=== PATIENT | female | born 1965 | race African-American/Black ===

== ENCOUNTER 2016-09-18 13:51 | Emergency (ER) | payer MEDICARE, OTHER ==
[~2016-09-18] VITALS: Ht 170.2 cm; Wt 52.2 kg
[~2016-09-18 13:51] MED LIST: ACET1TAB32 PO; ALBU8.5H6 IH; CYCL10TA2 PO; DICL75TA PO; LISI1TAB3 PO; PRAV10TA2 PO
[2016-09-18 14:25] VITALS: BP 147/82
--- NOTE | 2016-09-18 15:37 | RAD ---
Left great toe, 3 views, 09/18/2016: History: Great toe pain No fracture or destructive bony lesion is seen. There is mild degenerative change at the first MTP joint. The soft tissues are unremarkable. IMPRESSION: 1. Mild degenerative change. 2. No acute bony abnormality is detected.
[2016-09-18] MEDS ORDERED: ACET-704 PO (15:51)
[2016-09-18] MEDS ORDERED: CEPH-264 PO (15:51)
--- NOTE | 2016-09-18 15:51 | PHYS DOC ---
Past Medical History Past Medical History: Asthma, High Cholesterol, Hypertension Past Surgical History: Tubal ligation, Other Additional Past Surgical Histo: MASS REMOVED FROM HER VAGINA; cyst on face Alcohol Use: Occasionally Drug Use: None Adult General Chief Complaint Chief Complaint: LOWER EXT PAIN HPI HPI Patient is a 51 year old female who presents with left 2nd toe pain for 2 months. She denies any known injury. She saw her PCP for the pain previously. She was told that she does not have gout and was prescribed a medication that she was not able to afford. Her PCP is Dr. Parr. Review of Systems Review of Systems Constitutional: Denies fever or chills. [] Musculoskeletal: Reports left second toe pain. Integument: Denies rash or skin lesions. [] Neurologic: Denies focal weakness or sensory changes. [] Allergies Allergies Allergies Coded Allergies Type Severity Reaction Last Updated Verified No Known Drug Allergies 03/13/14 No Physical Exam Physical Exam Constitutional: Well developed, well nourished, no acute distress, non-toxic appearance. [] HENT: Normocephalic, atraumatic, oropharynx moist. [] Eyes: PERRLA, EOMI, conjunctiva normal, no discharge. [] Skin: Warm, dry, no rash. There is mild erythema of the plantar surface of the distal phalanx of the left second toe with peeling of the skin. Extremities: Left second toe tenderness particularly over the PIP joint, ROM intact, no edema. 2+ DP pulse. Less than 2 second capillary refill in the toes distally. Light touch sensation intact in the toes. Neurologic: Alert and oriented X 3, normal motor function, normal sensory function, no focal deficits noted. [] Psychologic: Affect normal, judgement normal, mood normal. [] Current Patient Data Vital Signs Vital Signs Date Time Temp Pulse Resp B/P Pulse Ox O2 Delivery O2 Flow Rate FiO2 09/18/16 14:25 98 82 16 147/82 98 Room Air 98.0 EKG EKG [] Radiology/Procedures Radiology/Procedures REASON: 2nd toe pain x2 months PROCEDURE: TOES LEFT Left great toe, 3 views, 09/18/2016: History: Great toe pain No fracture or destructive bony lesion is seen. There is mild degenerative change at the first MTP joint. The soft tissues are unremarkable. IMPRESSION: 1. Mild degenerative change. 2. No acute bony abnormality is detected. Course & Med Decision Making Course & Med Decision Making Pertinent Labs and Imaging studies reviewed. (See chart for details) [] Dragon Disclaimer Dragon Disclaimer This electronic medical record was generated, in whole or in part, using a voice recognition dictation system. Departure Departure Impression: Primary Impression: Toe pain, left Disposition: HOME, SELF-CARE Condition: STABLE Referrals: BRIA PARR MD (PCP) MALLORY DUKE DPM Patient Instructions: Foot Contusion, [id number] Additional Instructions: Your x-ray does not show any broken bones or dislocation. Please take the prescribed pain medication as instructed. Do not drive or operate heavy machinery while taking pain medication. Please follow-up with the digital content marketing manager listed below if your toe pain continues. Return to emergency department if you have any new or concerning symptoms. Scripts Cephalexin (Keflex)500 Mg Capsule1 Cap PO BID #14 CAP Prov:RASHARD LYMAN 09/18/16 Acetaminophen With Codeine (Tylenol With Codeine #3 Tablet)1 Each Tablet1 Tab PO PRN Q6HRS PRN PAIN #20 TAB Prov:RASHARD LYMAN 09/18/16 RASHARD LYMAN Sep 18, 2016 15:51
== END 2016-09-18 15:57 | disposition home or self-care (01) ==
LOC: ER 13:51
DX: M79.675 Pain in left toe(s) (principal); E78.00 Pure hypercholesterolemia, unspecified; I10 Essential (primary) hypertension; J45.909 Unspecified asthma, uncomplicated
CPT/HCPCS: 73660; 99284

== ENCOUNTER 2016-11-09 18:08 | Emergency (ER) | payer MEDICARE ==
[~2016-11-09] VITALS: Ht 172.7 cm; Wt 50.8 kg
[~2016-11-09 18:08] MED LIST changes: +ACET-704 PO; +CEPH-264 PO
[2016-11-09] MEDS ORDERED: ASPIRIN CHEWABLE 81 MG TABLET. PO ONE (18:15)
--- NOTE | 2016-11-09 18:34 | EKG ---
[facility] [address] [place] [address] Test Date: 2016-11-09 Test Time: 18:16:19 Pat Name: SALLY MIRELES Department: Room: Gender: F Mica Inspector: : 1965 Requested By: OCTAVIO GRIMM Order Number: [id number] Reading MD: Nettie Burgess Measurements Intervals [place] Rate: 95 P: 68 [place]: 162 QRS: 67 QRSD: 86 T: 87 QT: 372 QTc: 471 Interpretive Statements SINUS RHYTHM QRS(T) CONTOUR ABNORMALITY CONSIDER ANTEROSEPTAL MYOCARDIAL DAMAGE T ABNORMALITY IN ANTERIOR LEADS ABNORMAL ECG Electronically Signed On 11-13-2016 13:37:04 CDT by Nettie Burgess
[2016-11-09 18:47] LABS: BASO % 0 % (0-3); EOS % 0 % (0-3); HEMATOCRIT 37.3 % (36.0-47.0); HEMOGLOBIN 11.8 g/dL (12.0-15.5); LYMPH # 0.8 x10^3/uL (1.0-4.8); LYMPH % 6 % (24-48); MEAN CORPUSCULAR HEMOGLOBIN 25 pg (25-35); MEAN CORPUSCULAR HGB CONC 32 g/dL (31-37); MEAN CORPUSCULAR VOLUME 80 fL (79-100); MONO % 6 % (0-9); NEUT % 87 % (31-73); PLATELET COUNT 243 x10^3/uL (140-400); RED BLOOD COUNT 4.65 x10^6/uL (3.50-5.40); RED CELL DISTRIBUTION WIDTH 15.8 % (11.5-14.5); WHITE BLOOD COUNT 12.6 x10^3/uL (4.0-11.0)
[2016-11-09 19:08] LABS: CALCIUM 8.6 mg/dL (8.5-10.1); CREATININE 0.8 mg/dL (0.6-1.0); GFR 90.8
[2016-11-09 19:13] LABS: ALBUMIN 3.4 g/dL (3.4-5.0); DIRECT BILIRUBIN 0.1 mg/dL (0.0-0.2); TOTAL BILIRUBIN 0.5 mg/dL (0.2-1.0); TOTAL PROTEIN 7.2 g/dL (6.4-8.2)
[2016-11-09 19:17] LABS: PLT ESTIMATE ADEQUATE (ADEQUATE)
[2016-11-09] MEDS ORDERED: ASPI81TA2 PO (20:00)
--- NOTE | 2016-11-09 20:01 | PHYS DOC ---
Past Medical History Past Medical History: Asthma, GERD, High Cholesterol, Hypertension Past Surgical History: Tubal ligation, Other Additional Past Surgical Histo: MASS REMOVED FROM HER VAGINA; cyst on face Alcohol Use: Occasionally Drug Use: None Adult General Chief Complaint Chief Complaint: CHEST PAIN HPI HPI 51-year-old female with a history of hyperlipidemia currently reporting to be a statin hypertension and history of smoking who presents emergency department with chest pain this started at 7 AM. She describes as a stabbing sharp pain that is nonradiating and not associated with nausea vomiting or diaphoresis. The pain is intermittent. She is never seen a drupal web developer. She denies unilateral leg swelling hemoptysis personal or family history of blood clotting disorders. No alleviating or exacerbating factors present. Review of systems is negative for nausea vomiting abdominal pain fevers chills. She denies cough. All other review of systems is negative unless otherwise noted in history of present illness. Review of Systems Review of Systems SEE ABOVE. Current Medications Current Medications Current Medications Medications (Trade) Dose Ordered Sig/Lance Start Time Stop Time Status Last Admin Dose Admin Aspirin (Children'S Aspirin) 324 mg 1X ONCE 11/09/16 18:15 11/09/16 18:19 DC 11/09/16 18:40 324 MG Allergies Allergies Allergies Coded Allergies Type Severity Reaction Last Updated Verified No Known Drug Allergies 03/13/14 No Physical Exam Physical Exam Constitutional: Well developed, well nourished, no acute distress, non-toxic appearance. HENT: Normocephalic, atraumatic, bilateral external ears normal, oropharynx moist, no oral exudates, nose normal. Eyes: PERRLA, EOMI, conjunctiva normal, no discharge. [] Neck: Normal range of motion, no tenderness, supple, no stridor. [] Cardiovascular:Heart rate regular rhythm, no murmur Lungs & Thorax: Bilateral breath sounds clear to auscultation [] Abdomen: Bowel sounds normal, soft, no tenderness, no masses, no pulsatile masses. Skin: Warm, dry, no erythema, no rash. [] Back: No tenderness, no CVA tenderness. Extremities: No tenderness, no cyanosis, no clubbing, ROM intact, no edema. Neurologic: Alert and oriented X 3, normal motor function, normal sensory function, no focal deficits noted. [] Psychologic: Affect normal, judgement normal, mood normal. [] Current Patient Data Vital Signs Vital Signs Date Time Temp Pulse Resp B/P Pulse Ox O2 Delivery O2 Flow Rate FiO2 11/09/16 18:15 96 16 131/73 94 Room Air Lab Values Laboratory Tests Test 11/09/16 18:37 White Blood Count 12.6x10^3/uL (4.0-11.0) H Red Blood Count 4.65x10^6/uL (3.50-5.40) Hemoglobin 11.8g/dL (12.0-15.5) L Hematocrit 37.3% (36.0-47.0) Mean Corpuscular Volume 80fL (79-100) Mean Corpuscular Hemoglobin 25pg (25-35) Mean Corpuscular Hemoglobin Concent 32g/dL (31-37) Red Cell Distribution Width 15.8% (11.5-14.5) H Platelet Count 243x10^3/uL (140-400) Neutrophils (%) (Auto) 87% (31-73) H Lymphocytes (%) (Auto) 6% (24-48) L Monocytes (%) (Auto) 6% (0-9) Eosinophils (%) (Auto) 0% (0-3) Basophils (%) (Auto) 0% (0-3) Neutrophils # (Auto) 11.0x10^3uL (1.8-7.7) H Lymphocytes # (Auto) 0.8x10^3/uL (1.0-4.8) L Monocytes # (Auto) 0.7x10^3/uL (0.0-1.1) Eosinophils # (Auto) 0.1x10^3/uL (0.0-0.7) Basophils # (Auto) 0.0x10^3/uL (0.0-0.2) Segmented Neutrophils % 86% (35-66) H Band Neutrophils % 2% (0-9) Lymphocytes % 8% (24-48) L Monocytes % 4% (0-10) Platelet Estimate Adequate (ADEQUATE) Sodium Level 136mmol/L (136-145) Potassium Level 4.0mmol/L (3.5-5.1) Chloride Level 99mmol/L (98-107) Carbon Dioxide Level 27mmol/L (21-32) Anion Gap 10 (6-14) Blood Urea Nitrogen 10mg/dL (7-20) Creatinine 0.8mg/dL (0.6-1.0) Estimated GFR (Cockcroft-Gault) 90.8 Glucose Level 179mg/dL (70-99) H Calcium Level 8.6mg/dL (8.5-10.1) Total Bilirubin 0.5mg/dL (0.2-1.0) Direct Bilirubin 0.1mg/dL (0.0-0.2) Aspartate Amino Transferase (AST) 20U/L (15-37) Alanine Aminotransferase (ALT) 31U/L (14-59) Alkaline Phosphatase 79U/L (46-116) Troponin I Quantitative < 0.017ng/mL (0.000-0.055) LM-Fro-J-Type Natriuretic Peptide 51pg/mL (0-124) Total Protein 7.2g/dL (6.4-8.2) Albumin 3.4g/dL (3.4-5.0) Lipase 80U/L (73-393) Laboratory Tests 11/09/16 18:37 Laboratory Tests 11/09/16 18:37 EKG EKG [] EKG shows sinus rhythm with a regular rate. ST segments congruent. Probable LVH present. Not consistent with ischemia. Radiology/Procedures Radiology/Procedures []Chest x-ray reviewed by myself shows no obvious infiltrate or pneumothorax present. No obvious acute cardiopulmonary process present. Course & Med Decision Making Course & Med Decision Making Pertinent Labs and Imaging studies reviewed. (See chart for details) [] 51-year-old female presenting to the emergency department today with chest pain started at 7 AM. Vital signs unremarkable. Pertinent physical exam findings show normal physical exam. EKG unremarkable. Chest x-ray unremarkable. Troponin negative. Pain and been present for approximately 12 hours. 1 troponin sufficient at this time. Patient's pain is much improved from before she came after the aspirin. She was subsequent discharged home to follow up with cardiology over the next day or 2. Heart score 3. Dragon Disclaimer Dragon Disclaimer This electronic medical record was generated, in whole or in part, using a voice recognition dictation system. Departure Departure Impression: Primary Impression: Chest pain Disposition: HOME, SELF-CARE Condition: STABLE Referrals: BRIA PARR MD (PCP) CARRIE HENDERSON MD in 1 to 2 days. heart doctor. Patient Instructions: Chest Pain (Nonspecific) Additional Instructions: Thank you for allowing us to participate in your care today. Followup with your primary care physician in 3 days if your symptoms do not improve. If you do not have a primary care provider you can ask for a list of our primary care providers. Return to the emergency department you have any new or concerning findings. This should be evaluated by the primary care physician and any necessary consulting services for continued management within a few days after discharge. Return to emergency room if you have any new or concerning symptoms including but not limited to fever, chills, nausea, vomiting, intractable pain, any new rashes, chest pain, shortness of air, uncontrolled bleeding, difficulty breathing, and/or vision loss. You may have been prescribed medication that can change in your level of thinking and ability to operate machinery. These medications include hydrocodone and Ativan. Also, Benadryl has been known to do this as well. Be sure to check with your pharmacist and ask if the medications you've prescribed can affect your level of consciousness. I recommend not operating heavy machinery or driving while on medication such as these. Scripts Aspirin 81 Mg Tab.chew1 Tab PO DAILY #14 TAB Ref 3 Prov:OCTAVIO GRIMM MD 11/09/16 Problem Qualifiers Primary Impression: Chest pain Chest pain type: unspecified Qualified Code: R07.9 - Chest pain, unspecified OCTAVIO GRIMM MD Nov 09, 2016 20:01
[2016-11-09 20:46] VITALS: BP 115/70
[2016-11-09] MEDS ORDERED: MORP15TA PO ×2 (20:58→21:03)
--- NOTE | 2016-11-10 08:45 | RAD ---
Portable chest, 11/09/2016: History: Chest pain Comparison is made to a study from 08/21/2013. The heart size and pulmonary vascularity are normal. No pulmonary infiltrates are seen. There is no evidence of pleural fluid. IMPRESSION: No acute cardiopulmonary abnormality is detected.
== END 2016-11-09 21:14 | disposition home or self-care (01) ==
LOC: ER 18:08
DX: R07.89 Other chest pain (principal); R11.2 Nausea with vomiting, unspecified; E78.00 Pure hypercholesterolemia, unspecified; J45.909 Unspecified asthma, uncomplicated; I10 Essential (primary) hypertension; K21.9 Gastro-esophageal reflux disease without esophagitis; Z98.51 Tubal ligation status; Z79.82 Long term (current) use of aspirin; Z87.891 Personal history of nicotine dependence
CPT/HCPCS: 36415; 71010; 80048; 80076; 83690; 83880; 84484; 85007; 85027; 93005; 99285-25

== ENCOUNTER 2016-12-16 11:41 | Emergency (ER) | payer MEDICARE ==
[~2016-12-16] VITALS: Ht 172.7 cm; Wt 50.8 kg
[~2016-12-16 11:41] MED LIST changes: +ASPI81TA2 PO; +MORP15TA PO
--- NOTE | 2016-12-16 11:55 | PHYS DOC ---
Past Medical History Past Medical History: Asthma, GERD, High Cholesterol, Hypertension Past Surgical History: Tubal ligation, Other Additional Past Surgical Histo: MASS REMOVED FROM HER VAGINA; cyst on face Alcohol Use: Occasionally Drug Use: None Adult General Chief Complaint Chief Complaint: COUGH HPI HPI Patient is a 51 year old female presents emergency department stating that she has history of asthma. She states that she has ran out of her medications. She' s had a cough with productive sputum that's been clearing color. Last 8 days. She denies any fever, chills or nausea vomiting. Denies any recent use of steroids. Review of Systems Review of Systems Constitutional: Denies fever or chills [] Eyes: Denies change in visual acuity, redness, or eye pain [] HENT: Denies nasal congestion or sore throat [] Respiratory: cough and shortness of breath [] Cardiovascular: No additional information not addressed in HPI [] GI: Denies abdominal pain, nausea, vomiting, bloody stools or diarrhea [] : Denies dysuria or hematuria [] Musculoskeletal: Denies back pain or joint pain [] Integument: Denies rash or skin lesions [] Neurologic: Denies headache, focal weakness or sensory changes [] Endocrine: Denies polyuria or polydipsia [] Current Medications Current Medications Current Medications Medications (Trade) Dose Ordered Sig/[facility] Start Time Stop Time Status Last Admin Dose Admin Albuterol/ Ipratropium (Duoneb) 3 ml 1X ONCE 12/16/16 12:15 12/16/16 12:16 DC 12/16/16 12:04 3 ML Prednisone (Prednisone) 40 mg 1X ONCE 12/16/16 12:15 12/16/16 12:16 DC 12/16/16 12:18 40 MG Allergies Allergies Allergies Coded Allergies Type Severity Reaction Last Updated Verified No Known Drug Allergies 03/13/14 No Physical Exam Physical Exam Constitutional: Well developed, well nourished, no acute distress, non-toxic appearance. [] HENT: Normocephalic, atraumatic, bilateral external ears normal, oropharynx moist, no oral exudates, nose normal. [] Eyes: PERRLA, EOMI, conjunctiva normal, no discharge. [] Neck: Normal range of motion, no tenderness, supple, no stridor. [] Cardiovascular:Heart rate regular rhythm, no murmur [] Lungs & Thorax: Bilateral breath sounds with wheezes noted throughout bilaterally Skin: Warm, dry, no erythema, no rash. [] Back: No tenderness Extremities: No tenderness, no cyanosis, no clubbing, ROM intact, no edema. [] Neurologic: Alert and oriented X 3, normal motor function, normal sensory function, no focal deficits noted. [] Psychologic: Affect normal, judgement normal, mood normal. [] Current Patient Data Vital Signs Vital Signs Date Time Temp Pulse Resp B/P (MAP) Pulse Ox O2 Delivery O2 Flow Rate FiO2 12/16/16 12:04 100 Room Air 12/16/16 11:42 98.4 85 22 98.4 EKG EKG [] Radiology/Procedures Radiology/Procedures [facility] [address] [place] [address] IMAGING REPORT Signed PATIENT: SALLY MIRELES ACCOUNT: [id number] : 1965 LOCATION: ER AGE: 51 SEX: F EXAM STATUS: REG ER ORD. PHYSICIAN: TODD KING APRN REASON: porductive clear cough x 8 days PROCEDURE: CHEST PA & LATERAL Indication cough and congestion. Shortness of breath. PA and lateral views of the chest were obtained. Comparison is made to an examination 11/09/2016. There is mild hyperexpansion. The lungs are clear. There is no pleural fluid or pneumothorax. There has not been a significant change compared to the previous exam. IMPRESSION: No acute or focal process. No significant change DICTATED and SIGNED BY: ATUL BALDERRAMA MD DATE: 12/16/16 1223 CC: TODD KING APRN; BRIA PARR MD ~ [] Course & Med Decision Making Course & Med Decision Making Pertinent Labs and Imaging studies reviewed. (See chart for details) Was provided with a DuoNeb treatment here in the emergency department. Breath sounds are clear at this time. Chest x-ray was negative for any pneumonias or abnormalities. Patient will be discharged home with a pro-air inhaler. She is instructed to contact her primary care physician for a nebulizer machine and further medications for her nebulizer treatments at home. Patient will also be placed on steroids. Signs and symptoms to return back to emergency department has been provided. Patient agrees with discharge instructions treatment regimens and follow-up recommendations. [] Dragon Disclaimer Dragon Disclaimer This electronic medical record was generated, in whole or in part, using a voice recognition dictation system. Departure Departure Impression: Primary Impression: Asthma exacerbation Disposition: HOME, SELF-CARE Condition: STABLE Referrals: BRIA PARR MD (PCP) Patient Instructions: Asthma, Adult, [id number] Additional Instructions: Activity as tolerated. Medications as prescribed. Contact your primary care physician for a nebulizer machine in education. Return back to emergency prior signs symptoms of become worse. Follow-up to primary care physician next 3-5 days. Scripts Albuterol Sulfate (PROAIR HFA INHALER) 8.5 Gm Hfa.aer.ad 1 PUFF INH PRN Q6HRS Y for SHORTNESS OF BREATH, #1 INHALER 0 Refills Prov: TODD KING APRN 12/16/16 Prednisone (PREDNISONE) 20 Mg Tablet 40 MG PO DAILY, #14 TAB Prov: TODD KING APRN 12/16/16 TODD KING APRN December 16, 2016 11:55
[2016-12-16] MEDS ORDERED: IPRATRPIUM/ALBUTEROL 0.5/2.5MG 3 ML NEBU. NEB ONE (12:15)
[2016-12-16] MEDS ORDERED: predniSONE 20 MG TABLET PO ONE (12:15)
--- NOTE | 2016-12-16 12:29 | RAD ---
Indication cough and congestion. Shortness of breath. PA and lateral views of the chest were obtained. Comparison is made to an examination 11/09/2016. There is mild hyperexpansion. The lungs are clear. There is no pleural fluid or pneumothorax. There has not been a significant change compared to the previous exam. IMPRESSION: No acute or focal process. No significant change
[2016-12-16] MEDS ORDERED: PROAIR HFA8.5 GM INH (12:35)
[2016-12-16] MEDS ORDERED: PRED20TA PO (12:35)
== END 2016-12-16 12:42 | disposition home or self-care (01) ==
LOC: ER 11:41
DX: J45.901 Unspecified asthma with (acute) exacerbation (principal); K21.9 Gastro-esophageal reflux disease without esophagitis; I10 Essential (primary) hypertension; E78.00 Pure hypercholesterolemia, unspecified
CPT/HCPCS: 71020; 94250; 94640; 99284; J7512; J7620

== ENCOUNTER 2017-05-09 15:57 | Emergency (ER) | payer MEDICARE ==
[~2017-05-09 15:57] MED LIST changes: +ASPI-630 PO; -ASPI81TA2 PO; +PRED20TA PO; +PROAIR HFA8.5 GM INH
[2017-05-09] MEDS ORDERED: IV NORMAL SALINE 1000ML BAG 1,000 ML IV ONE (16:30)
[2017-05-09] MEDS ORDERED: ACETAMINOPHEN 500 MG TABLET PO ONE (16:45)
[2017-05-09] MEDS ORDERED: IBUPROFEN 800 MG TABLET. PO ONE (16:45)
[2017-05-09 16:50] LABS: BASO % 0 % (0-3); EOS % 0 % (0-3); HEMATOCRIT 38.1 % (36.0-47.0); HEMOGLOBIN 12.5 g/dL (12.0-15.5); LYMPH # 1.1 x10^3/uL (1.0-4.8); LYMPH % 9 % (24-48); MEAN CORPUSCULAR HEMOGLOBIN 25 pg (25-35); MEAN CORPUSCULAR HGB CONC 33 g/dL (31-37); MEAN CORPUSCULAR VOLUME 77 fL (79-100); MONO % 7 % (0-9); NEUT % 83 % (31-73); PLATELET COUNT 272 x10^3/uL (140-400); RED BLOOD COUNT 4.93 x10^6/uL (3.50-5.40); RED CELL DISTRIBUTION WIDTH 16.1 % (11.5-14.5); WHITE BLOOD COUNT 11.6 x10^3/uL (4.0-11.0)
[2017-05-09 17:01] LABS: CALCIUM 8.8 mg/dL (8.5-10.1); CREATININE 0.7 mg/dL (0.6-1.0); GFR 105.9; POTASSIUM 3.9 mmol/L (3.5-5.1)
[2017-05-09 17:15] LABS: OBC FLU VALID
--- NOTE | 2017-05-09 17:15 | PHYS DOC ---
Past Medical History Past Medical History: Asthma, GERD, High Cholesterol, Hypertension Past Surgical History: Tubal ligation, Other Additional Past Surgical Histo: MASS REMOVED FROM HER VAGINA; cyst on face Alcohol Use: Occasionally Drug Use: None Adult General Chief Complaint Chief Complaint: MUSCLE SPASM/CRAMP HPI HPI Patient is a 51 year old F who presents with muscle spasms and cramps. Patient states the past couple years she's had chronic muscle spasm and cramps to her entire body. Patient states today the spasms and cramps and gotten worse. Patient denies any fevers however in triage patient had a 101 temperature. Patient denies any chest pain shortness of breath. Patient denies any nausea/ vomiting/diarrhea associated with these. She does not know what brings on the muscle cramps or what relieves them. Patient no other complaints. Review of Systems Review of Systems GEN: Denies fevers, chills, sweats HEENT: Denies blurred vision, sore throat CV: Denies chest pain RESP: Denies shortness of air, cough GI: Denies n/v/d NEURO: Denies confusion, dizziness MSK: Muscle cramps Current Medications Current Medications Current Medications Medications (Trade) Dose Ordered Sig/Lance Start Time Stop Time Status Last Admin Dose Admin Acetaminophen (Tylenol) 1,000 mg 1X ONCE 05/09/17 16:45 05/09/17 16:46 DC 05/09/17 17:09 1,000 MG Diazepam (Valium) 5 mg 1X ONCE 05/09/17 16:30 05/09/17 16:31 DC 05/09/17 16:29 5 MG Ibuprofen (Motrin) 800 mg 1X ONCE 05/09/17 16:45 05/09/17 16:46 DC 05/09/17 17:09 800 MG Sodium Chloride 1,000 ml @ 1,000 mls/hr 1X ONCE 05/09/17 16:30 05/09/17 17:29 DC 05/09/17 16:29 1,000 MLS/HR Allergies Allergies Allergies Coded Allergies Type Severity Reaction Last Updated Verified No Known Drug Allergies 03/13/14 No Physical Exam Physical Exam GEN.: No apparent distress. Alert and oriented. HEENT: Head is normocephalic, atraumatic NECK: Supple. LUNGS: CTAB. HEART: RRR, S1, S2 present. Peripheral pulses intact ABDOMEN: Soft, nontender. Positive bowel sounds. EXTREMITIES: Without any cyanosis. NEUROLOGIC: Normal speech, normal tone PSYCHIATRIC: Normal affect, normal mood. SKIN: No ulcerations Current Patient Data Vital Signs Vital Signs Date Time Temp Pulse Resp B/P (MAP) Pulse Ox O2 Delivery O2 Flow Rate FiO2 05/09/17 16:30 101.2 81 24 144/78 (100) 99 Room Air 101.2 Lab Values Laboratory Tests Test 05/09/17 16:36 05/09/17 16:45 05/09/17 18:56 Influenza Type A Antigen Negative (NEGATIVE) Influenza Type B Antigen Negative (NEGATIVE) White Blood Count 11.6 x10^3/uL (4.0-11.0) H Red Blood Count 4.93 x10^6/uL (3.50-5.40) Hemoglobin 12.5 g/dL (12.0-15.5) Hematocrit 38.1 % (36.0-47.0) Mean Corpuscular Volume 77 fL (79-100) L Mean Corpuscular Hemoglobin 25 pg (25-35) Mean Corpuscular Hemoglobin Concent 33 g/dL (31-37) Red Cell Distribution Width 16.1 % (11.5-14.5) H Platelet Count 272 x10^3/uL (140-400) Neutrophils (%) (Auto) 83 % (31-73) H Lymphocytes (%) (Auto) 9 % (24-48) L Monocytes (%) (Auto) 7 % (0-9) Eosinophils (%) (Auto) 0 % (0-3) Basophils (%) (Auto) 0 % (0-3) Neutrophils # (Auto) 9.6 x10^3uL (1.8-7.7) H Lymphocytes # (Auto) 1.1 x10^3/uL (1.0-4.8) Monocytes # (Auto) 0.9 x10^3/uL (0.0-1.1) Eosinophils # (Auto) 0.0 x10^3/uL (0.0-0.7) Basophils # (Auto) 0.0 x10^3/uL (0.0-0.2) Sodium Level 139 mmol/L (136-145) Potassium Level 3.9 mmol/L (3.5-5.1) Chloride Level 103 mmol/L (98-107) Carbon Dioxide Level 29 mmol/L (21-32) Anion Gap 7 (6-14) Blood Urea Nitrogen 12 mg/dL (7-20) Creatinine 0.7 mg/dL (0.6-1.0) Estimated GFR (Cockcroft-Gault) 105.9 Glucose Level 103 mg/dL (70-99) H Lactic Acid Level 0.9 mmol/L (0.4-2.0) Calcium Level 8.8 mg/dL (8.5-10.1) Creatine Kinase 68 U/L (26-192) Urine Collection Type Unknown Urine Color Yellow Urine Clarity Clear Urine pH 6.5 Urine Specific [place] 1.010 Urine Protein Negative mg/dL (NEG-TRACE) Urine Glucose (UA) Negative mg/dL (NEG) Urine Ketones (Stick) Negative mg/dL (NEG) Urine Blood Negative (NEG) Urine Nitrite Negative (NEG) Urine Bilirubin Negative (NEG) Urine Urobilinogen Dipstick 0.2 mg/dL (0.2 mg/dL) Urine Leukocyte Esterase Negative (NEG) Urine RBC Occ /HPF (0-2) Urine WBC 0 /HPF (0-4) Urine Squamous Epithelial Cells Few /LPF Urine Bacteria 0 /HPF (0-FEW) Laboratory Tests 05/09/17 16:45 Laboratory Tests 05/09/17 16:45 EKG EKG [] Radiology/Procedures Radiology/Procedures [] Course & Med Decision Making Course & Med Decision Making Pertinent Labs and Imaging studies reviewed. (See chart for details) ED course: Patient was seen and examined emergency room CBC, CMP, UA, U Chandra a, blood cultures were ordered 1930: On reevaluation patient states she feels much better and is ready to go home. Recommended [id number] treatment for her fevers. Patient was ready go home. MDM: After reviewing the chart, CC/HPI/PMH, physical exam, [lab results], I do not believe the patient has a severe bacterial infection warranting further workup and/or admission at this time. Patient is showing no signs of sepsis despite having a fever in the emergency room. I believe the patient's muscle cramps secondary to right years from a fever. On reexamination the patient is asymptomatic and wanted to go home. Patient stable for discharge. Additional verbal discharge instructions were provided to the patient and that if symptoms get worse or any new symptoms arise that are worrisome to the patient she is to return to the emergency room immediately [] Dragon Disclaimer Dragon Disclaimer This electronic medical record was generated, in whole or in part, using a voice recognition dictation system. Departure Departure Impression: Primary Impression: Muscle cramps Additional Impression: Fever Disposition: HOME, SELF-CARE Condition: IMPROVED Referrals: BRIA PARR MD (PCP) Patient Instructions: Muscle Cramps Additional Instructions: Please follow up with your family physician in the next one to 2 days and return if symptoms increase Problem Qualifiers SHARON CHOI DO May 09, 2017 17:15
[2017-05-09 19:00] VITALS: BP 129/78
[2017-05-09 19:02] LABS: BILIRUBIN,URINE NEGATIVE (NEG); GLUCOSE,URINE NEGATIVE (NEG); NITRITE,URINE NEGATIVE (NEG); PH,URINE 6.5; PROTEIN,URINE NEGATIVE (NEG-TRACE); UROBILINOGEN,URINE 0.2 mg/dL (0.2 mg/dL)
[2017-05-09 19:08] LABS: RBC,URINE OCC /HPF (0-2)
[2017-05-09 19:09] LABS: BACTERIA,URINE 0 /HPF (0-FEW); SQUAMOUS EPITHELIAL CELL,UR FEW /LPF; WBC,URINE 0 /HPF (0-4)
== END 2017-05-09 19:56 | disposition home or self-care (01) ==
LOC: ER 15:57
DX: R25.2 Cramp and spasm (principal); R50.9 Fever, unspecified; E78.00 Pure hypercholesterolemia, unspecified; I10 Essential (primary) hypertension; J45.909 Unspecified asthma, uncomplicated; K21.9 Gastro-esophageal reflux disease without esophagitis; Z98.51 Tubal ligation status
CPT/HCPCS: 36415; 80048; 81001; 82550; 83605; 85025; 87040; 87804; 96361; 96374; 99285; J3360; J7030

== ENCOUNTER → 2020-06-23 | Outpatient (CLI) | payer MEDICARE ==
[~2020-06-23] MED LIST changes: +ALBU2.5V8 INH; +LISI1TAB23 PO; -LISI1TAB3 PO; -PROAIR HFA8.5 GM INH
--- NOTE | 2020-06-23 12:53 | RAD ---
EXAM: Chest CT without intravenous contrast. HISTORY: Pulmonary nodule. Cigarette smoking. TECHNIQUE: Computed tomographic images of the chest were obtained without contrast. Multiplanar reformatting was performed. *One or more of the following individualized dose reduction techniques were utilized for this examination: 1. Automated exposure control. 2. Adjustment of the mA and/or kV according to patient size. 3. Use of iterative reconstruction technique. COMPARISON: None. FINDINGS: The heart is normal in size. There is a small amount of anterior pericardial fluid or pericardial thickening. There is calcified atherosclerotic plaque involving the aorta and coronary arteries. No pathologically enlarged lymph node is seen. There is moderate pulmonary emphysema. There is biapical pleural proximal scarring and subpleural bleb formation. There is no pneumothorax or pleural effusion. There is a nodule with slight spiculated margins and foci of internal lucency within the right middle lobe measuring 9 mm in maximum dimension. There is a 6 mm nodule within the posterior right lower lobe. There is a 6 mm nodule within the superior segment of the left lower lobe. There is an angulated opacity adjacent to pleural parenchymal scarring within the left lung apex measuring 9 mm, likely due to scarring. There is a cluster of tiny nodules measuring up to 3 mm within the lateral right upper lobe, also likely due to scarring. There is a 3 mm pleural-based nodule within the anterior left upper lobe. There is a 4 mm nodule within the right middle lobe. There is a 7 mm groundglass nodule within the anterior right lung base. There is a 2 mm groundglass nodule within the right lung apex. There are 4 mm and 5 mm groundglass nodules within the anterior left lower lobe. No hepatic lesion is seen on the [id number]. There is a 1.8 cm simple cyst within the lateral left kidney. Follow-up is not routinely recommended for simple renal cysts. There is no suspicious osseous lesion. IMPRESSION: 1. Multiple bilateral pulmonary nodules, largest which measures 9 mm within the right middle lobe and contains stimulated margins and areas of internal lucency. This is within near limits for characterization with a PET/CT. In the absence of prior studies to confirm stability, a PET/CT or [address] follow-up is indicated. The additional nodules are indeterminate and described in detail above. 2. Pulmonary emphysema with biapical predominant pleural parenchymal scarring. Electronically signed by: Suad Cordova MD (06/23/2020 12:50 PM) [facility]
== END ==
LOC: CT 11:31
PROVIDERS: ATTEND Internal Medicine Pulmonary Disease
DX: R91.8 Other nonspecific abnormal finding of lung field (principal); J43.9 Emphysema, unspecified; Z87.891 Personal history of nicotine dependence
CPT/HCPCS: 71250